=== PATIENT | female | born 1980 | race Caucasian/White ===

== ENCOUNTER 2018-09-12 22:33 | Emergency (ER) | payer OTHER ==
[~2018-09-12] VITALS: Ht 165.1 cm; Wt 102.5 kg
--- OUTSIDE RECORDS SUMMARY | ~2018-09-12 | XMS | Clinical Summary ---
Demographics + + + | Address | [address] | | | [place] [address] | + + + | Home Phone | | + + + | Preferred Language | Unknown | + + + | Marital Status | Single | + + + | Faith Affiliation | Unknown | + + + | Race | Unknown | + + + | Ethnic Group | Unknown | + + + Author + + + | Author | [facility] | + + + | Organization | [facility] | + + + | Address | Unknown | + + + | Phone | Unavailable | + + + Support + + +---------+ + | Name | Relationship | Address | Phone | + + +---------+ + | Brandy Diaz | ECON | Unknown | | + + +---------+ + Care Team Providers + +------+ + | Care Digital Marketing Manager Name | Role | Phone | + +------+ + | Rosalina Bonds | PP | Unavailable | + +------+ + Allergies No Known Allergies Current Medications No known medications Active Problems + + + | Problem | Noted Date | + + + | Morbid obesity (HCC) - BMI 40.3 September2014 | 09/11/2014 | + + + | Poor dentition | 09/11/2014 | + + + | René Garcia | 09/11/2014 | + + + Social History + +-------+ +--------+------+ | Tobacco Use | Types | Packs/Day | Years | Date | | | | | Used | | + +-------+ +--------+------+ | Current Every Day | | 0.5 | 20 | | | Smoker | | | | | + +-------+ +--------+------+ + +---+---+---+ | Smokeless Tobacco: | | | | | Never Used | | | | + +---+---+---+ + + | Tobacco Cessation: Counseling Given: Yes | + + + + +---------+ + | Alcohol Use | Drinks/We | oz/Week | Comments | | | ek | | | + + +---------+ + | Yes | 1 | 0.6 | once a week | | | Glasses | | | | | of wine | | | + + +---------+ + + + + | Sex Assigned at | Date Recorded | | | | + + + | Not on file | | + + + Last Filed Vital Signs + + + + | Vital Sign | Reading | Time Taken | + + + + | Blood Pressure | 136/77 | 09/12/2014 4:35 PM PDT | + + + + | Pulse | 88 | 09/12/2014 4:35 PM PDT | + + + + | Temperature | 36.7 C (98 F) | 09/12/2014 4:35 PM PDT | + + + + | Respiratory Rate | 18 | 09/12/2014 4:35 PM PDT | + + + + | Oxygen Saturation | 95% | 09/12/2014 4:35 PM PDT | + + + + | Inhaled Oxygen | - | - | | Concentration | | | + + + + | Weight | 99.8 kg (220 lb) | 09/11/2014 4:16 PM PDT | + + + + | Height | 157.5 cm (5' 2") | 09/11/2014 4:16 PM PDT | + + + + | Body Mass Index | 40.24 | 09/11/2014 4:16 PM PDT | + + + + Plan of Treatment Not on file Results Not on filefrom Last 3 Months Insurance + +--------+ +------+-------+---------+ | Payer | Benefi | Subscriber | Type | Phone | Address | | | t Plan | ID | | | | | | / | | | | | | | Group | | | | | + +--------+ +------+-------+---------+ | COMMERCIAL OTHER | COMMER | [id number] | | | | | | CIAL | | | | | | | GENERI | | | | | | | C PLAN | | | | | + +--------+ +------+-------+---------+ + +--------+ +--------+ + + | Guarantor Name | Accoun | Relation to | Date | Phone | Billing Address | | | t Type | Patient | of | | | | | | | | | | + +--------+ +--------+ + + | CARMEL GLASGOW | Person [birth year] Self [birth year] Home: | [address] | | | al/Fam | | [phone] | [phone] | [place] [address] | | | [place] | | | [phone] | | + +--------+ +--------+ + +
--- OUTSIDE RECORDS SUMMARY | ~2018-09-12 | XMS | Clinical Summary ---
Demographics + + + | Address | [address] | | | [place] [address] | + + + | Home Phone | | + + + | Preferred Language | Unknown | + + + | Marital Status | Single | + + + | Caodaism Affiliation | Unknown | + + + | Race | Unknown | + + + | Ethnic Group | Unknown | + + + Author + + + | Author | [facility] | + + + | Organization | [facility] | + + + | Address | Unknown | + + + | Phone | Unavailable | + + + Support + + +---------+ + | Name | Relationship | Address | Phone | + + +---------+ + | Brandy Diaz | ECON | Unknown | | + + +---------+ + Care Team Providers + +------+ + | Care Senior Business Analyst Name | Role | Phone | + [...] +------+-------+---------+ | COMMERCIAL OTHER | COMMER | [id number] | | | | | | CIAL [...] | | al/Fam | | 1980 | [phone] | [place] [address] | | | [place] | | | [phone] | | + +--------+ +--------+ + +
[~2018-09-12 22:33] MED LIST: CEPHALEXIN500 MG PO; IBUPROFEN800 MG PO; NORCO 5-325 TA1 EACH PO; PENICILLIN V P500 MG PO; PEPCID AC20 MG PO; PRENATAL COMPL1 EACH PO; PROMETHAZINE HC25 M1 PO; PROPRANOLOL HCL40 MG PO; ULTRAM50 MG PO
== END 2018-09-13 00:30 | disposition home or self-care (01) ==
LOC: ED 22:33
DX: G43.909 Migraine, unspecified, not intractable, without status migrainosus (principal); F17.200 Nicotine dependence, unspecified, uncomplicated
CPT/HCPCS: 96361; 96374; 96375; 99283-25; J0780; J1100; J1200; J1885; J7030